=== PATIENT | male | born 1940 | race Caucasian/White ===

== ENCOUNTER 2017-01-16 07:00 | Inpatient (IN) | payer OTHER ==
[~2017-01-16] VITALS: Ht 167.6 cm; Wt 80.0 kg
[2017-01-16 08:02] LABS: BASOPHIL % 0.1 % (0-2); PLATELET COUNT 273 x10^3mcL (130-400)
[2017-01-16 08:03] LABS: RED CELL DISTRIBUTION WIDTH 15.2 % (11.5-14.5)
[2017-01-16 08:06] LABS: UA SPECIFIC GRAVITY 1.025 (1.005-1.035); microscopic required? YES; urine erythrocyte NEGATIVE (NEGATIVE)
[2017-01-16 08:10] LABS: CALCIUM 8.6 mg/dL (8.5-10.1); CARBON DIOXIDE 23.7 mmol/L (21-32); CHLORIDE SERUM 108 mmol/L (98-107); GLUCOSE SERUM 219 mg/dL (74-106); POTASSIUM SERUM 4.2 mmol/L (3.5-5.1); SODIUM SERUM 141 mmol/L (136-145)
[2017-01-16 08:15] LABS: ALBUMIN 3.7 g/dL (3.4-5.0); ALKALINE PHOSPHATASE 70 U/L (46-116); ALT/SGPT 24 U/L (16-63); AST/SGOT 26 U/L (15-37); BILIRUBIN TOTAL 0.5 mg/dL (0.20-1.00); TOTAL PROTEIN, SERUM 6.9 g/dL (6.4-8.2)
[2017-01-16] MEDS ORDERED: LIPI20 PO (08:55)
[2017-01-16] MEDS ORDERED: TRAMADOL HCL50 MG PO (08:55)
[2017-01-16] MEDS ORDERED: ROC25 PO (08:56)
[2017-01-16] MEDS ORDERED: GLIMEPIRIDE2 M1 PO (08:58)
[2017-01-16] MEDS ORDERED: MIRALAX17 GM/Dose PO (08:58)
[2017-01-16] MEDS ORDERED: DILTIAZEM HCL180 MG PO (08:59)
[2017-01-16] MEDS ORDERED: BAYER ASPIRIN R81 MG PO (08:59)
[2017-01-16] MEDS ORDERED: TERAZOSIN HCL5 MG PO (09:00)
[2017-01-16] MEDS ORDERED: VITAMIN D50000 I4 PO (09:01)
[2017-01-16 09:55] LABS: MAGNESIUM 1.9 mg/dL (1.8-2.4); PHOSPHOROUS 3.3 mg/dL (2.5-4.9)
[2017-01-16 09:56] LABS: CHOLESTEROL/HDL RATIO 2.6
[2017-01-16 10:00] VITALS: BP 130/62
[2017-01-16 10:05] LABS: FREE T4 1.1 ng/dL (0.76-1.46); FREE THYROXINE INDEX 3.1 ug/dL (1.4-4.5); T4(THYROXINE) 8.1 ug/dL (4.7-13.3)
[2017-01-16 10:06] LABS: T3 TOTAL 0.91 ng/mL
[2017-01-16 14:00] VITALS: BP 127/74
[2017-01-16 16:17] VITALS: BP 130/62
[2017-01-16 21:55] VITALS: BP 126/77
[2017-01-17 05:40] VITALS: BP 139/76
[2017-01-17 06:45] LABS: CALCIUM 8.4 mg/dL (8.5-10.1); CARBON DIOXIDE 25.5 mmol/L (21-32); CHLORIDE SERUM 110 mmol/L (98-107); CREATININE SERUM 1.9 mg/dL (0.7-1.3); GLUCOSE SERUM 70 mg/dL (74-106); MAGNESIUM 1.8 mg/dL (1.8-2.4); PHOSPHOROUS 3.8 mg/dL (2.5-4.9); POTASSIUM SERUM 4.4 mmol/L (3.5-5.1); SODIUM SERUM 144 mmol/L (136-145)
[2017-01-17 07:46] LABS: BASOPHIL % 0.7 % (0-2); PLATELET COUNT 253 x10^3mcL (130-400); RED CELL DISTRIBUTION WIDTH 15.8 % (11.5-14.5)
[2017-01-17 09:15] VITALS: BP 134/65
[2017-01-17 13:31] VITALS: BP 139/59
[2017-01-17 17:03] VITALS: BP 153/72
[2017-01-17 19:30] VITALS: BP 143/70
[2017-01-18 05:43] VITALS: BP 147/84
[2017-01-18 06:42] LABS: PLATELET COUNT 266 x10^3mcL (130-400)
[2017-01-18 06:43] LABS: RED CELL DISTRIBUTION WIDTH 15.2 % (11.5-14.5)
[2017-01-18 06:50] LABS: CALCIUM 8.2 mg/dL (8.5-10.1); CARBON DIOXIDE 25.1 mmol/L (21-32); CHLORIDE SERUM 112 mmol/L (98-107); CREATININE SERUM 1.6 mg/dL (0.7-1.3); GLUCOSE SERUM 79 mg/dL (74-106); MAGNESIUM 1.9 mg/dL (1.8-2.4); PHOSPHOROUS 3.6 mg/dL (2.5-4.9); POTASSIUM SERUM 4.2 mmol/L (3.5-5.1); SODIUM SERUM 145 mmol/L (136-145)
[2017-01-18 09:10] VITALS: BP 143/79
[2017-01-18] MEDS ORDERED: LAC PO (10:11)
[2017-01-18] MEDS ORDERED: FLO4 PO (10:12)
[2017-01-18] MEDS ORDERED: LEVAQUIN750 MG PO (10:13)
[2017-01-18 10:22] VITALS: BP 145/79
== END 2017-01-18 12:24 | disposition home or self-care (01) | DRG 689 ==
LOC: ED 07:00 → DU 08:42 → MU 01-18 06:45
PROVIDERS: Emergency Medicine; ADMIT Family Medicine
DX: N39.0 Urinary tract infection, site not specified (principal); N17.0 Acute kidney failure with tubular necrosis; E11.65 Type 2 diabetes mellitus with hyperglycemia; I10 Essential (primary) hypertension; E11.21 Type 2 diabetes mellitus with diabetic nephropathy; E11.51 Type 2 diabetes mellitus with diabetic peripheral angiopathy without gangrene; K80.20 Calculus of gallbladder without cholecystitis without obstruction; N28.1 Cyst of kidney, acquired; N20.0 Calculus of kidney; E78.5 Hyperlipidemia, unspecified; D53.9 Nutritional anemia, unspecified; N40.0 Benign prostatic hyperplasia without lower urinary tract symptoms; Z79.82 Long term (current) use of aspirin; Z68.28 Body mass index [BMI] 28.0-28.9, adult; Z87.891 Personal history of nicotine dependence; Z79.84 Long term (current) use of oral hypoglycemic drugs; M51.37 Other intervertebral disc degeneration, lumbosacral region
CPT/HCPCS: 83880; 84439; J0696; J2405; J3010; J3490; J7030; Q0092

== ENCOUNTER 2020-04-03 17:33 | Emergency (ER) | payer OTHER, SELFPAY ==
[~2020-04-03] VITALS: Ht 172.7 cm; Wt 90.7 kg
[~2020-04-03 17:33] MED LIST: BAYER ASPIRIN R81 MG PO; DILTIAZEM HCL180 MG PO; FLO4 PO; GLIMEPIRIDE2 M1 PO; LAC PO; LEVAQUIN750 MG PO; LIPI20 PO; MIRALAX17 GM/Dose PO; ROC25 PO; TERAZOSIN HCL5 MG PO; TRAMADOL HCL50 MG PO; VITAMIN D50000 I4 PO
[2020-04-03 17:34] VITALS: Ht 172.7 cm; Wt 90.7 kg
[2020-04-03 19:07] LABS: BASOPHIL % 0.1 % (0.2-1.5); PLATELET COUNT 206 x10^3mcL (152-348)
[2020-04-03 19:11] LABS: RED CELL DISTRIBUTION WIDTH 15.3 % (12.1-16.2); rbc morphology (normal/abnorm) NORMAL (NORMAL)
[2020-04-03 19:34] LABS: CARBON DIOXIDE 21.2 mmol/L (21-32); CHLORIDE SERUM 105 mmol/L (98-107); CREATININE SERUM 2.6 mg/dL (0.7-1.3); GLUCOSE SERUM 175 mg/dL (74-106); POTASSIUM SERUM 5.5 mmol/L (3.5-5.1); SODIUM SERUM 136 mmol/L (136-145)
[2020-04-03 19:51] LABS: ALKALINE PHOSPHATASE 55 U/L (46-116); ALT/SGPT 30 U/L (16-63); AST/SGOT 48 U/L (15-37); BILIRUBIN TOTAL 0.38 mg/dL (0.20-1.00); LACTIC DEHYDROGENASE (LDH) 276 U/L (100-190); TOTAL PROTEIN, SERUM 6.7 g/dL (6.4-8.2)
[2020-04-03 20:23] LABS: ALBUMIN 2.9 g/dL (3.4-5.0)
[2020-04-03 23:25] VITALS: BP 114/59
== END 2020-04-04 00:25 | disposition home or self-care (01) ==
LOC: ED 17:33
PROVIDERS: Emergency Medicine
DX: U07.1 COVID-19 (principal); I10 Essential (primary) hypertension; E11.649 Type 2 diabetes mellitus with hypoglycemia without coma
CPT/HCPCS: 36600; 82962; 83880; 85378; J3490; U0003